=== PATIENT | female | born 1980 | race African-American/Black ===

== ENCOUNTER 2017-02-20 13:00 | Emergency (ER) | payer OTHER ==
[~2017-02-20] VITALS: Ht 165.1 cm; Wt 81.6 kg
[~2017-02-20 13:00] MED LIST: FOLIC ACID 1 MG PO; IBUPROFEN800 M1 PO; IRON325 M1 PO; NATURE'S BLE1000 MCG PO; PREDNISONE10 MG PO; TYLENOL #31 TAB PO; ULTRAM50 M1 PO; VICODIN5-300 PO; VITAB121000 PO; VITAMIN D50000 IU PO
--- NOTE | 2017-02-20 13:15 | ED GI/GU/ABDOMINAL COMPLAINT ---
History of Present Illness General Chief Complaint: Abdominal Pain/Flank Pain Stated Complaint: ABD PAIN Source: patient, old records Exam Limitations: no limitations Vital Signs & Intake/Output Vital Signs & Intake/Output Vital Signs Date Time Temp Pulse Resp B/P B/P Pulse O2 O2 Flow FiO2 Mean Ox Delivery Rate 02/20 1522 Room Air 02/20 1521 97.5 71 18 126/68 99 Room Air 02/20 1419 98.2 69 18 118/67 100 Room Air 02/20 1301 98.7 80 15 125/79 97 Room Air Room Air Allergies Coded Allergies: NO KNOWN ALLERGIES (09/29/14) Reconcile Medications Biotin 1 MG TABLET 1 TAB PO DAILY SUPPLEMENT (Reported) Cyanocobalamin (Vitamin B-12) (Unknown Strength) TABLET (Unknown Dose) PO DAILY SUPPLEMENT (Reported) ERGOCALCIFEROL (VITAMIN D2) (Vitamin D2) 50,000 UNIT CAPSULE 1 CAP PO QW SUPPLEMENT (Reported) Ferrous Sulfate 325 MG (65 MG IRON) TABLET 2 TAB PO DAILY SUPPLEMENT ( Reported) Folic Acid 1 MG TABLET 1 MG PO DAILY FOLIC ACID SUPPLEMENT (Reported) HYDROCODONE/ACETAMINOPHEN (Hydrocodon-Acetaminophen 5-325) 1 EACH TABLET 1 TAB PO Q6HR PRN PAIN Ibuprofen 800 MG TABLET 1 TAB PO Q6PRN PRN pain Meloxicam 15 MG TABLET 1 TAB PO DAILY PAIN Prednisone 10 MG TABLET 0 TAB PO DAILY INFLAMMATION 3 TABS A DAY X 3 DAYS 2 TABS A DAY X 3 DAYS 1 TABS A DAY X 3 DAYS Tramadol HCl (Ultram) 50 MG TABLET 1-2 TAB PO Q6PRN PRN severe pain Triage Note: PT TO ED FOR ABD PAIN FOR THE LAST COUPLE OF DAYS. DENIES N/V/D. PAIN IS WORSE WITH WALKING AROUND. RLQ PAIN THAT RADIATES ACROSS ABD. LAST NORMAL BM TODAY. SUPPOSED TO SEE GI LATER THIS MONTH FOR ENDOSCOPY AND COLONOSCOPY TO R/O ?GI BLEED D/T DROP IN IRON LEVELS. Triage Nurses Notes Reviewed? yes ? n Is pt currently ? No Onset: Abrupt Duration: day(s): (4), constant Timing: recent history Quality/Severity: aching, sharpness, stabbing Severity Numbers: 7 Location: right lower quadrant Radiation: no radiation Activities at Onset: none Prior Abdominal Problems: none No Modifying Factors: none Associated Symptoms: denies HPI: 36-year-old female presents to ER for evaluation of a 4 day history of right lower quadrant nonradiating abdominal pain sharp stabbing in nature constant. She denies any associated nausea vomiting diarrhea. She's been taking Aleve without improvement. No urinary complaints dysuria urgency frequency. No vaginal bleeding or discharge or last Metrrenstral cycle was February 08 she denies chance of . There is no back pain and flank pain or other abdominal pain chest pain shortness of breath fever or chills. She is not sought care for the symptoms until today. She skeletal see a master planner in [place] at the end of the month for a colonoscopy /endoscopy secondary to her iron levels being low. no black or bloody stools, no change in her bowel movements/appetitie (LANA HOFFMAN) Past History Travel History Traveled to [place] past 21 day No Medical History Any Pertinent Medical History? 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 No (LANA HOFFMAN) Review of Systems Review of Systems Constitutional: Reports: see HPI. All Other Systems: Reviewed and Negative Comments Review of systems: See HPI, All other systems negative. Constitutional, no chills no fever, no malaise no weight loss HEENT: No visual changes no sore throat no congestion, no ear pain Cardiovascular: No chest pain , no palpitation , no orthopnea Skin: no rashes, no change in skin Respiratory: No dyspnea no cough no sputum no hemoptysis GI: No nausea no vomiting, no diarrhea, no bloating/constipation : No dysuria No hematuria, no frequency, no discharge Muscle skeletal: No joint pain, no joint swelling, no back pain, no neck pain, Neurologic: No numbness no confusion, no headache Psych: No stress no depression,. Heme/endocrine: No bruising no bleeding Immunology: No lymphadenopathy (LANA HOFFMAN) Physical Exam Physical Exam General Appearance: well developed/nourished, no apparent distress, alert, awake Gastrointestinal: soft Comments: Well-developed well-nourished person in no acute distress HEENT: Normal EENT exam; PERRL, EOMI, no nystagmus. HEAD is atraumatic. moist mucous membranes. Neck: Supple, no lymphadenopathy, normal range of motion without pain or tenderness Back: Nontender, no CVA tenderness. Full range of motion Cardiovascular: Regular rate and rhythms no murmurs rubs or gallops, normal JVP Respiratory: Chest nontender.There were no bony deformities, no asymmetry. No respiratory distress. Patient speaking in full complete sentences. Breath sounds clear to auscultation bilaterally: NO W/R/R Abdomen: Soft, RLQ TENDERNESS, NEG ROVSIGS, NEG OBTURATOR, nondistended, no appreciable organomegaly. Normal bowel sounds. No rebound/guarding, No appreciable enlargement of the abdominal aorta, No ascites. Extremity: No edema, full range of motion of extremities, normal and equal pulses bilaterally, 5 out of 5 strength noted to bilateral upper and lower extremities Neuro: Alert oriented x3, motor sensory normal, cranial nerves II through XII grossly intact. There were no obvious focal neurologic abnormalities. Skin: No appreciable rash on exposed skin, skin is warm and dry. Psych: Mood and affect is normal, memory and judgment is normal. Core Measures ACS in differential dx? No Severe Sepsis Present: No Septic Shock Present: No (BRIAN ANDERSON,LANA) Progress Differential Diagnosis: appendicitis, biliary colic, bowel obstruction, colon cancer, cholecystitis, diverticulitis, ectopic , gastritis, hepatitis, inflamm bowel dis, intrauterine , ovarian cyst, ovarian torsion, pancreatitis, PID/cervicitis, PUD/GERD, perforated viscous, SBO, UTI/pyelo Plan of Care: Orders Procedure Date/time Status URINE 02/20 132 Complete URINALYSIS 02/20 132 Complete COMPREHENSIVE METABOLIC PANEL 02/20 1329 Complete CBC WITHOUT DIFFERENTIAL 02/20 1329 Complete Laboratory Tests 02/20/17 1340: Anion Gap 10, Estimated GFR > 60, BUN/Creatinine Ratio 21.7, Glucose 114 H, Calcium 10.1, Total Bilirubin 0.2, AST 22, ALT 38, Alkaline Phosphatase 83, Total Protein 7.1, Albumin 4.2, Globulin 2.9, Albumin/Globulin Ratio 1.4, CBC w Diff NO MAN DIFF REQ, RBC 4.62, MCV 71.2 L, MCH 22.1 L, RDW 33.4 H, MPV 8.1, Gran % 74.9, Lymphocytes % 18.6 L, Monocytes % 3.2, Eosinophils % 3.0, Basophils % 0.3, Absolute Granulocytes 8.0 H, Absolute Lymphocytes 2.0, Absolute Monocytes 0.3, Absolute Eosinophils 0.3, Absolute Basophils 0, PUBS MCHC 31.0 L, Urinalysis LIGHT H, Urine Color YEL, Urine Clarity HAZY H, Urine pH 6.0, Ur Specific [place] 1.025, Urine Protein NEG, Urine Ketones NEG, Urine Nitrite NEG, Urine Bilirubin NEG, Urine Urobilinogen 0.2, Ur Leukocyte Esterase NEG, Ur Microscopic SEDIMENT EXAMINED, Urine RBC 1-3, Urine WBC RARE, Ur Epithelial Cells MANY H, Urine Bacteria MOD H, Urine Mucus FEW, Urine Hemoglobin NEG, Urine Glucose NEG, Urine Test NEGATIVE pt med with iv fluids, toradol 30mg iv ,ct labs ordered Patient reports to feeling improved after fluids Toradol I discussed the patient at length her CAT scan results she is scheduled colonoscopy and endoscopy and ultrasound with GI as well as her bow maker. I discussed with her at length all the incidental findings on CT. Prescription for Motrin provided advised heating pads close follow-up this week, return to ER anytime sooner with any concerns she feels comfortable with this plan (BRIAN ANDERSON,LANA) Diagnostic Imaging: Viewed by Me: CT Scan. Discussed w/RAD: CT Scan. Radiology Impression: PATIENT: ASHLEY KAISER PRESENT AGE: 36 PATIENT ACCOUNT NO: [id number] : 81 LOCATION: [facility] ORDERING PHYSICIAN: LANA ANDERSON SERVICE DATE: 02/20/17 EXAM TYPE: CAT - CT ABD & PELVIS W IV CONTRAST EXAMINATION: CT ABDOMEN AND PELVIS WITH CONTRAST CLINICAL INFORMATION: Abdominal pain COMPARISON: None TECHNIQUE: Multidetector volumetric imaging was performed of the abdomen and pelvis before and after the IV administration of 924 mL of Optiray 320 intravenous contrast. Sagittal and coronal reformatted images were obtained on the technologist's workstation. DLP: 322.75 mGy-cm FINDINGS: LUNG BASES: The visualized lung bases are unremarkable. LIVER, GALLBLADDER, AND BILIARY TREE: The liver is enlarged, measures about 20 cm in CC diameter. No intrahepatic biliary ductal dilatation. There is a 10 mm hypodense lesion in the lateral aspect of the right lobe, in segment 6 as seen on axial image 26/96 of series 2 and coronal image 55. It is too small to characterized based on this exam and statistically can represent a hepatic cyst. The gallbladder is unremarkable with no evidence of radiopaque gallstones, gallbladder wall thickening, or obvious pericholecystic inflammatory changes. PANCREAS: Unremarkable. SPLEEN: Unremarkable. ADRENAL GLANDS: Unremarkable. KIDNEYS AND URETERS: The kidneys are normal in size, shape, and attenuation. No hydronephrosis, hydroureter, or calculi seen. No perinephric stranding. BLADDER: Unremarkable. GASTROINTESTINAL TRACT: The small and large bowel are unremarkable. The appendix is is visualized. The lumen of the appendix is normal in diameter without periappendiceal inflammatory changes to suggest acute appendicitis. There is a small appendicolith at the tip of the appendix, better seen on coronal image 38 and axial image 489/768 from series 3. ABDOMINAL WALL: No significant hernia is appreciated. LYMPH NODES: Normal. VASCULAR: Unremarkable. PELVIC VISCERA: There is a 2.6 cm hypodense structure in the right adnexa as seen on axial image 72/96 from series 2 and coronal image 51. It could represent a right ovarian cyst. Heterogeneity of the myometrial enhancement suggests fibromatous uterus. OSSEOUS STRUCTURES: Unremarkable. IMPRESSION: 1. No CT evidence of acute appendicitis. 2. Fibromatous uterus. 3. A 2.6 cm right adnexal hypodense structure, likely an ovarian cyst. Consider pelvic ultrasound correlation. 4. Hepatomegaly and a 10 mm hepatic hypodense lesion in segment 6, which cannot be further evaluated due to its small size. Hepatic ultrasound evaluation can provide more information. DICTATED BY: MATTHEW BATISTA MD DATE/ TIME DICTATED:02/20/171450 DOOR TECHNICIAN:TADEO DATE/TIME TRANSCRIBED: 02/20/171450 CONFIDENTIAL, DO NOT COPY WITHOUT APPROPRIATE AUTHORIZATION. 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 MELOXICAM DIRECTED. TYLENOL EVERY 6-8 HOURS, HEATING PADS. RETURN TO THE ER WITH ANY CONCERNS. A COPY OF YOUR CT REPORT IS IN YOUR PAPERWORK Departure Forms: Customer Survey General Discharge Information Prescriptions: Current Visit Scripts Meloxicam 1 TAB PO DAILY #30 TAB (BRIAN ANDERSON,LANA) PA/AWS ARCHITECT Co-Sign Statement Statement: ED Attending supervision documentation- I saw and evaluated the patient. I have also reviewed all the pertinent lab results and diagnostic results. I agree with the findings and the plan of care as documented in the PA's/AWS ARCHITECT's documentation. x I have reviewed the ED Record and agree with the PA's/AWS ARCHITECT's documentation. [] Additions or exceptions (if any) to the PAs/AWS ARCHITECT's note and plan are summarized below: [] (CAYETANO ZAZUETA,BENNETT)
[2017-02-20 14:11] LABS: ABSOLUTE BASOPHIL COUNT 0 /CUMM (0.0-0.2); ABSOLUTE EOSINOPHIL COUNT 0.3 /CUMM (0.0-0.7); ABSOLUTE MONOCYTE COUNT 0.3 /CUMM (0.10-0.60); BASOPHIL % 0.3 % (0.0-2.0); GRANULOCYTE % 74.9 % (42.2-75.2); HEMATOCRIT 32.9 % (37-47); MEAN CORPUSCULAR HGB 22.1 PG (27.0-31.0); MEAN CORPUSCULAR VOLUME 71.2 FL (81.0-99.0); MEAN PLATELET VOLUME 8.1 FL (7.4-10.4); PLATELET COUNT 567 /CUMM (130-400); RBC DISTRIBUTION WIDTH 33.4 % (11.5-14.5); RED BLOOD CELL CT 4.62 /CUMM (4.20-5.40); WHITE BLOOD CELL COUNT 10.7 /CUMM (4.8-10.8)
--- NOTE | 2017-02-20 15:05 | CT SCAN REPORT ---
EXAMINATION: CT ABDOMEN AND PELVIS WITH CONTRAST CLINICAL INFORMATION: Abdominal pain COMPARISON: None TECHNIQUE: Multidetector volumetric imaging was performed of the abdomen and pelvis before and after the IV administration of 924 mL of Optiray 320 intravenous contrast. Sagittal and coronal reformatted images were obtained on the technologist's workstation. DLP: 322.75 mGy-cm FINDINGS: LUNG BASES: The visualized lung bases are unremarkable. LIVER, GALLBLADDER, AND BILIARY TREE: The liver is enlarged, measures about 20 cm in CC diameter. No intrahepatic biliary ductal dilatation. There is a 10 mm hypodense lesion in the lateral aspect of the right lobe, in segment 6 as seen on axial image 26/96 of series 2 and coronal image 55. It is too small to characterized based on this exam and statistically can represent a hepatic cyst. The gallbladder is unremarkable with no evidence of radiopaque gallstones, gallbladder wall thickening, or obvious pericholecystic inflammatory changes. PANCREAS: Unremarkable. SPLEEN: Unremarkable. ADRENAL GLANDS: Unremarkable. KIDNEYS AND URETERS: The kidneys are normal in size, shape, and attenuation. No hydronephrosis, hydroureter, or calculi seen. No perinephric stranding. BLADDER: Unremarkable. GASTROINTESTINAL TRACT: The small and large bowel are unremarkable. The appendix is is visualized. The lumen of the appendix is normal in diameter without periappendiceal inflammatory changes to suggest acute appendicitis. There is a small appendicolith at the tip of the appendix, better seen on coronal image 38 and axial image 489/768 from series 3. ABDOMINAL WALL: No significant hernia is appreciated. LYMPH NODES: Normal. VASCULAR: Unremarkable. PELVIC VISCERA: There is a 2.6 cm hypodense structure in the right adnexa as seen on axial image 72/96 from series 2 and coronal image 51. It could represent a right ovarian cyst. Heterogeneity of the myometrial enhancement suggests fibromatous uterus. OSSEOUS STRUCTURES: Unremarkable. IMPRESSION: 1. No CT evidence of acute appendicitis. 2. Fibromatous uterus. 3. A 2.6 cm right adnexal hypodense structure, likely an ovarian cyst. Consider pelvic ultrasound correlation. 4. Hepatomegaly and a 10 mm hepatic hypodense lesion in segment 6, which cannot be further evaluated due to its small size. Hepatic ultrasound evaluation can provide more information.
[2017-02-20] MEDS ORDERED: MELOXICAM15 M1 PO (15:20)
[2017-02-20 15:21] VITALS: BP 126/68
== END 2017-02-20 15:37 ==
LOC: ERH 13:00
PROVIDERS: Physician Assistant Medical
DX: N83.201 Unspecified ovarian cyst, right side (principal); D25.9 Leiomyoma of uterus, unspecified; K76.9 Liver disease, unspecified
CPT/HCPCS: 74177; 81001; 81025; 96361; 96374; J1885